=== PATIENT | male | born 1975 | race Hispanic/Latino ===

== ENCOUNTER 2016-08-06 12:59 | Day surgery (SDC) | payer OTHER ==
[~2016-08-06] VITALS: Ht 144.8 cm; Wt 77.6 kg
[~2016-08-06 12:59] MED LIST: 0.9% Sodium Chloride 1,000 ML IV SCH; RES15 PO; Sodium Chloride LOK Flush 10 mL Syringe IV PRN; fentaNYL-PF 50 mCg/mL 2 mL Inj IVPUSH PRN
[2016-08-06 13:56] VITALS: BP 126/79; PULSE 54; RESP 12; O2SAT 96
[2016-08-06] MEDS ORDERED: 0.9% Sodium Chloride 1,000 ML IV ONE (14:28)
[2016-08-06 14:41] VITALS: BP 111/69; PULSE 73; RESP 16; O2SAT 97
[2016-08-06 14:51] VITALS: BP 90/57; PULSE 63; RESP 14; O2SAT 95
[2016-08-06 15:01] VITALS: BP 94/64; PULSE 87; RESP 16; O2SAT 97
--- NOTE | 2016-08-06 15:16 | ENDO ---
[address] [address] ENDOSCOPY PROCEDURE PATIENT: TIBURCIO MACIAS : 1975 MR#: [id number] ADMIT: 08/06/2016 JOB ID: [id number] DATE: 08/06/2016 PROCEDURE: Esophagogastroduodenoscopy with biopsy. PREOPERATIVE DIAGNOSIS(ES): Nausea and vomiting. POSTOPERATIVE DIAGNOSIS(ES): 1. There is a 5 mm distal esophageal ulcer, clean based, nonbleeding. 2. Mild distal esophagitis. 3. Moderate hiatal hernia. ANESTHESIA: 1. Fentanyl 100 mcg. 2. Versed 5 mg IV administered. COMPLICATIONS: None. BLOOD LOSS: Minimal. DESCRIPTION OF PROCEDURE: After risks and benefits were explained to the patient, informed consent was obtained. After anesthesia administered, an upper endoscope was inserted into the mouth intubating to the esophagus, stomach, second portion of duodenum, and mucosa carefully examined. After procedure was done, the scope was withdrawn and procedure terminated. FINDINGS: Upon inspection of the esophagus, there was a 5 mm distal esophageal ulcer, clean based, nonbleeding, along with mild distal esophagitis. Z-line located 35 cm from incisors. Upon entering stomach, there is no masses, ulcers, or lesions were seen. Retroflexion showed moderate size hiatal hernia. Duodenal bulb, first and second portion normal. Biopsies taken of body and antrum of the stomach and mid and distal esophagus. IMPRESSIONS: 1. Mild distal esophagitis. 2. A 5 mm clean based, nonbleeding distal esophageal ulcer. 3. Moderate hiatal hernia. RECOMMENDATIONS: 1. Omeprazole 40 mg by mouth twice a day. 2. Carafate 1 g by mouth four times a day. 3. Await biopsy results. 4. Followup with Jolly Santiago in the GI clinic.
--- NOTE | 2016-08-17 15:13 | PATH ---
SURGICAL PATHOLOGY Attending Physician:Angel Dominguez MD CASE STATUS: Signed Out * Amended * PATIENT NAME: TIBURCIO MACIAS PID: [id number] : 1975 DATE COLLECTED:08/06/2016 00:00 SPECIMEN: 1: Stomach, Antrum, Biopsy 2: Gastric, Biopsy 3: Esophagus, Biopsy 4: Esophagus, Biopsy CLINICAL HISTORY: 1). ANTRUM BIOPSY 2). BODY BIOPSY 3). DISTAL ESOPHAGEAL BIOPSY 4). MID ESOPHAGEAL BIOPSY FINAL DIAGNOSIS: 1. Antrum Biopsy: Superficial portions of gastric antral mucosa with chronic active gastritis. Organisms morphologically consistent with H. pylori identified by immunohistochemistry studies. 2. Body, Biopsy: Superficial portions of gastric fundic mucosa with chronic gastritis. Organisms morphologically consistent with H. pylori identified by immunohistochemistry studies. 3. Distal Esophageal Biopsy: Superficial portions of hyperplastic squamous mucosa. No significant inflammation or pathogenic organisms identified. No well preserved glandular epithelium identified for evaluation. 4. Mid Esophageal Biopsy: Superficial portions of hyperplastic squamous mucosa No significant inflammation or pathogenic organisms identified. No histomorphologic evidence of eosinophilic esophagitis. ICD10 B96.81 This case was reviewed and interpreted by Dr. Adriane Noonan. The final diagnosis is unchanged. This amendment is issued in order for the report to cross the interface and be available in the hospital electronic medical record. GROSS DESCRIPTION: The specimen is received in four formalin filled containers labeled with the patient's name. 1). The specimen is sublabeled "antrum" and consists of 3 portions of tissue which aggregate to 0.3 x 0.3 x 0.2 CM. The specimen is entirely submitted in cassettes 1A. 2). The specimen is sublabeled "body" and consists of 2 portions of tissue which aggregate to 0.3 x 0.3 x 0.2 CM. The specimen is entirely submitted in cassette 2A. 3). The specimen is sublabeled "distal esophageal" and consists of a 0.2 x 0.2 x 0.2 CM portion of tissue which is entirely submitted in cassette 3A. 4). The specimen is sublabeled "mid esophageal" and consists of 2 portions of tissue which aggregate to 0.3 x 0.3 x 0.2 CM. The specimen is entirely submitted in cassette 4A. 08/07/2016 DAC MICRO DESCRIPTION: IMMUNOHISTOCHEMISTRY: Blocks 1A and 2A: H. pylori:Positive. * This test was developed and its performance characteristics determined by [facility]. It has not been cleared or approved by the U.S. Food and Drug Administration. The FDA has determined that such clearance or approval is not necessary. This test is used for clinical purposes. It should not be regarded as investigational or for research. ICD-9 CODES: CPT CODES: 1: 50188, 17899 2: 27634, 30466 3: 38695 4: 07666 AMENDMENT(S): Amended: 08/17/2016 by Suzy Pang Reason:Miscellaneous The final diagnosis is unchanged. This amendment is issued in order for the report to cross the interface and be available in the hospital electronic medical record. Previous Signout Date: 08/11/2016 Electronically Signed Out Allison Bray MD [facility] Pathology [facility] [address], [place] [address] Technical component performed at [facility] [address], [address]
== END 2016-08-06 23:59 | disposition home or self-care (01) ==
LOC: END 12:59
PROVIDERS: ATTEND Internal Medicine Gastroenterology
DX: K22.10 Ulcer of esophagus without bleeding (principal); K29.50 Unspecified chronic gastritis without bleeding; A04.8 Other specified bacterial intestinal infections; K44.9 Diaphragmatic hernia without obstruction or gangrene; K20.9 Esophagitis, unspecified
CPT/HCPCS: 43239; 88305; 88342; G0500; J2250; J3010; J7030